=== PATIENT | male | born 1985 | race Caucasian/White ===

== ENCOUNTER 2020-04-19 06:48 | Emergency (ER) | payer OTHER ==
[2020-04-19 07:03] VITALS: BMI 24.7
[2020-04-19 08:26] LABS: BASO % 0.8 % (0-2.0); EOS % 1.7 % (0-4.5); HEMATOCRIT 40.6 % (35.4-49); LYMPH % 42.9 % (8-40); MCH 31.1 pg (25.7-33.7); MCHC 34.4 g/dl (32.0-35.9); MEAN CELL VOLUME 90.4 fl (80-96); MEAN PLT VOLUME 7.6 fl (7.5-11.1); MONO % 7.1 % (3.8-10.2); NEUT % 47.5 % (42.8-82.8); PLATELET COUNT 225 K/MM3 (134-434); RDW 12.3 % (11.9-15.9); WHITE BLOOD COUNT 3.8 K/mm3 (4.0-10.0)
[2020-04-19 08:31] LABS: BLOOD UREA NITROGEN 21.7 mg/dL (7-18); CALCIUM 9.3 mg/dL (8.5-10.1)
[2020-04-19 08:32] LABS: POTASSIUM 4.1 mmol/L (3.5-5.1)
[2020-04-19 08:35] LABS: CREATININE 0.7 mg/dL (0.55-1.3)
[2020-04-21 07:40] VITALS: BP 128/72; PULSE 68; TEMP 98.2
== END 2020-04-19 10:00 | disposition home or self-care (01) ==
LOC: JER 06:48
DX: R55 Syncope and collapse (principal)
CPT/HCPCS: 36415; 73070-TC-RT-FY; 80048; 85025; 93005; 93010; 99285-25

== ENCOUNTER 2020-09-14 08:44 | Emergency (ER) | payer OTHER ==
[2020-09-14 09:15] VITALS: BMI 24.7
[2020-09-14] MEDS ORDERED: DIPHTH,PERTUSS(ACELL),TET 0.5 ML DISP.SYRIN IM ONE ×2 (09:21→09:25)
[2020-09-14 09:47] VITALS: BP 106/72; PULSE 70; TEMP 98.6
== END 2020-09-14 09:47 | disposition home or self-care (01) ==
LOC: JER 08:44
PROC: 3E0234Z Introduction of Serum, Toxoid and Vaccine into Muscle, Percutaneous Approach (ICD-10-PCS; principal; 2020-09-14)
DX: S80.811A Abrasion, right lower leg, initial encounter (principal)
CPT/HCPCS: 90715; 99284-25